=== PATIENT | male | born 1980 | race Caucasian/White ===

== ENCOUNTER 2018-12-31 06:02 | Observation (INO) | payer BC ==
[2018-12-31] MEDS ORDERED: THROMBIN (BOVINE) 5,000 UNIT VIAL TP (06:52)
[2018-12-31] MEDS ORDERED: MIDAZOLAM 1 MG/ML 2 ML INJ (07:29)
[2018-12-31] MEDS ORDERED: METOCLOPRAMIDE 10 MG INJ (07:30)
[2018-12-31] MEDS ORDERED: FENTAnyl 50 MCG/ML VIAL (07:31)
[2018-12-31] MEDS ORDERED: ROCURONIUM 50 MG INJ (07:42)
[2018-12-31] MEDS ORDERED: PROPOFOL 20 ML (07:42)
[2018-12-31] MEDS ORDERED: CEFAZOLIN 1 GM INJ (07:42)
[2018-12-31] MEDS ORDERED: SUCCINYLCHOLINE CHLORIDE 100 MG/5 ML SYG IV (07:42)
[2018-12-31] MEDS ORDERED: HYDROmorphONE 2 MG/ML SYG (07:42)
[2018-12-31] MEDS ORDERED: LIDOCAINE 2% JELLY 5 ML (07:43)
[2018-12-31] MEDS: POLYMYXIN/BACITRACIN 1L IRRIG (08:21)
[2018-12-31] MEDS: THROMBIN 5000 UNIT VIAL TOP ×2 (08:21→09:48)
[2018-12-31] MEDS: BUPIVACAINE 0.5%/EPI (SDV) 30 ML INJ (08:21)
[2018-12-31] MEDS: HEMOSTATIC MATRIX SYG ZFS (08:22)
[2018-12-31] MEDS: GELATIN SIZE 100 SPONGE (09:48)
[2018-12-31] MEDS ORDERED: GLYCOPYRROLATE 0.4 MG INJ (09:56)
[2018-12-31] MEDS ORDERED: ONDANSETRON 4 MG INJ (09:56)
[2018-12-31] MEDS ORDERED: NEOSTIGMINE 3 MG/3 ML SYRINGE (09:56)
[2018-12-31] MEDS ORDERED: ONDANSETRON 4 MG INJ IV ×2 (10:30→11:00)
[2018-12-31] MEDS ORDERED: NALOXONE (0.4 MG/ML) INJ IV (10:30)
[2018-12-31] MEDS ORDERED: ACETAMINOPHEN 325 MG TAB PO (10:30)
[2018-12-31] MEDS ORDERED: HYDROCODONE/APAP (5/325) TAB PO (10:30)
[2018-12-31] MEDS ORDERED: PROCHLORPERAZINE 10 MG TAB PO (10:30)
[2018-12-31] MEDS ORDERED: NACL 0.9% 3 ML SYG IV (10:30)
[2018-12-31] MEDS ORDERED: LABETALOL HCL 20MG INJ IV (11:00)
[2018-12-31] MEDS ORDERED: ALBUTEROL 0.083% (NEB) 2.5 MG/3 ML AMP HHN (11:00)
[2018-12-31] MEDS ORDERED: DIPHENHYDRAMINE 50 MG INJ IV (11:00)
[2018-12-31] MEDS ORDERED: MEPERIDINE 25 MG INJ IV (11:00)
[2018-12-31] MEDS ORDERED: HYDROmorphONE 1 MG/5 ML IV SYRINGE IV ×2 (11:00)
[2018-12-31] MEDS ORDERED: FENTAnyl 50 MCG/ML VIAL IV ×2 (11:00)
[2018-12-31] MEDS ORDERED: OXYCODONE/ACETAMINOPHEN (5/325) TAB PO ×3 (11:00→17:30)
[2018-12-31] MEDS ORDERED: morphine (1 MG/ML) 10ML SYRINGE IV ×2 (11:00)
[2018-12-31] MEDS: HYDROCODONE/APAP (5/325) TAB PO ×2 (11:57→15:57)
[2018-12-31] MEDS: HYDROmorphONE 0.5 MG/0.5 ML SYG IV ×3 (13:49→23:41)
[2018-12-31] MEDS: OXYCODONE/ACETAMINOPHEN (5/325) TAB PO ×2 (17:54→22:09)
[2018-12-31] MEDS: CEFAZOLIN 1 GM/50 ML (PMX) 50 ML IVPB (17:54)
[2018-12-31] MEDS: CYCLOBENZAPRINE 10 MG TAB PO (21:39)
[2019-01-01] MEDS: HYDROmorphONE 0.5 MG/0.5 ML SYG IV (04:06)
[2019-01-01] MEDS: OXYCODONE/ACETAMINOPHEN (5/325) TAB PO ×3 (07:16→16:40)
[2019-01-01] MEDS: CALCIUM CARBONATE 500 MG CHEW TAB PO (11:21)
[2019-01-01] MEDS: CYCLOBENZAPRINE 10 MG TAB PO (13:58)
== END 2019-01-01 18:00 | disposition home or self-care (01) ==
LOC: SDS 06:02 → REC 10:32 → MS1 13:40
DX: M48.061 Spinal stenosis, lumbar region without neurogenic claudication (principal); M51.16 Intervertebral disc disorders with radiculopathy, lumbar region
CPT/HCPCS: 63030; 72100; 88304; 97116; 97162; 97530